=== PATIENT | female | born 1985 | race Caucasian/White ===

== ENCOUNTER 2019-11-13 05:58 | Inpatient (IN) ==
[2019-11-13] MEDS ORDERED: OXYTOCIN 30 UNITS/500 ML BAG IV PRN ×2 (09:13)
--- NOTE | 2019-11-13 09:27 | History & Physical Report ---
Date of Service November 13, 2019 Assessment & Plan (1) Amniotic fluid leaking: Admission and Anticipated Discharge Date Admission Date: IUP at 39 weeks with documented SPROM - not in labor will begin pitocin augmentation of labor as it has been 6 hours since SPROM macrosomic suspected on 34 week ultrasound- last weighed 8 lbs 12 0zs and delivered easily will begin PCN for GBS prophylaxis as well. History of Present Illness Primary Care Provider: Apolinar Burns MD Patient is a 33 yo white female EDC 11/16/19 who presents at 39 2/7 weeks with leaking fluid at 0400. only occasional contractions so far. no obvious gush noted. baby has been active. complicated by S>D with EFW at 98%tile at 34 weeks. GBS(+) Allergies Allergy/AdvReac Type Severity Reaction Status Date / Time No Known Allergies Allergy Verified 11/11/19 13:35 Home Medications Home Medications Medication Instructions Recorded Confirmed Type budesonide 2 inh INHALATION BID 11/13/19 11/13/19 History cetirizine [Zyrtec] 5 mg PO DAILY 11/13/19 11/13/19 History vit no.[id number] 1 tab PO DAILY 11/13/19 11/13/19 History [ Vitamin] Patient History Medical History (Updated 11/13/19 @ 09:24 by Mirta Nance MD, FACOG) Abnormal menstrual cycle Allergic rhinitis Anemia Encounter for anatomic survey Evaluate anatomy not seen on prior sonogram Female pelvic pain Menorrhagia Microscopic hematuria Ovarian cyst Varicella Surgical History S/P tonsillectomy S/P wisdom tooth extraction Family History Father Myocardial infarction Dyslipidemia Grandmother (Maternal) Heart disease Dyslipidemia Grandfather (Paternal) Heart disease Other Colorectal cancer Coronary heart disease Diabetes Hypertension Parkinson's disease Social History Smoking Status: Never smoker Second Hand Exposure: No; Do You Dip or Chew Tobacco: No; Hx Alcohol Use: No Hx Substance Use: No Preferred Language: Haitian Communication Ability: Effective Communication Ability Comment: Patient wears glasses [employer] Marker Required: No Beliefs That Will Affect Care: None marital status: marital status details: Jarret Corbin (33) [phone] work [phone] Current Living Situation: Family Current Living Situation Comment: lives with spouse, 2 sons, dog, cat-spouse changing litter current occupational status: unemployed current occupation: homemaker Other Information That Helps Us Care for You: No Feels Safe at Home: Yes Safety Concerns: Feels Safe At This Time Assistive Devices: Glasses Review of Systems All systems reviewed & are unremarkable except as noted in HPI & below Physical Exam Constitutional: WD/WN, vitals as above Respiratory: normal respiratory effort, lungs clear to auscultation Cardiovascular: RRR, no murmur, no edema Gastrointestinal (Abdomen): normal bowel sounds, soft, nontender, no hepatosplenomegaly Genitourinary: OB Exam Abdomen: + vertex (by ultrasound), + estimated weight (9-10 pounds) and + irregular contractions Manual OB Exam: + cervical dilation 1 cm, + cervical effacement 50%, + station high and + amniotic fluid bloody, nitrazine positive (equivocal- having bloody mucus) and ferning present OB Exam Monitor Tracing: + external FHT monitor used, + external uterine monitor used, + category I and + normal FHT variability Results & Data ([facility]) Vital Signs (Past 12 Hours) Vital Signs Temp Pulse Resp BP 11/13/19 06:59 98.4 F 98 H 20 111/64 11/13/19 06:17 85 112/59 L 11/13/19 06:12 98.2 F 85 18 112/59 L Coding Level of Care Code None Diagnoses Amniotic fluid leaking O42.90
[2019-11-13] MEDS ORDERED: PENICILLIN G POTASSIUM 6 MU in DEXTROSE 5% 250 ML IV ONE (09:30)
[2019-11-13 09:36] LABS: Hematocrit (blood only) 38.2 % (37-47); Hemoglobin 11.7 g/dL (12.0-16.0); Mean Corpuscular Hemoglobin 25.6 pg (25-34); Mean Corpuscular Volume 83.6 fL (80-100); Mean Platelet Volume 10.9 fL (7.4-10.4); Platelet Count 363 K/uL (130-400); RDW Coefficient of Variation 15.8 % (11.5-14.5); RDW Standard Deviation 47.6 fL (36.4-46.3); Red Blood Count 4.57 M/uL (4.2-5.4); White Blood Count 13.73 K/uL (4.8-10.8)
[2019-11-13 09:41] LABS: Mean Corpuscular Hgb Conc 30.6 g/dL (32-36)
[2019-11-13] MEDS: LACTATED RINGER'S 1,000 ML IV PRN (09:57)
[2019-11-13] MEDS ORDERED: CALCIUM CARBONATE 500 MG CHEWABLE TAB PO PRN (11:08)
[2019-11-13] MEDS: PENICILLIN G POTASSIUM 3 MU in DEXTROSE 5% 100 ML IV PRN ×3 (14:03→22:15)
[2019-11-13] MEDS: FAMOTIDINE 20 MG TAB PO SCH (14:55)
[2019-11-13] MEDS ORDERED: BUPIVACAINE 0.25% 30 ML VIAL ONE (20:42)
[2019-11-13] MEDS ORDERED: ePHEDrine sulfate 50 MG/ML AMP ONE (20:42)
[2019-11-13] MEDS ORDERED: fentaNYL citrate 100 MCG/2 ML VIAL ONE (20:42)
[2019-11-13] MEDS ORDERED: fentaNYL 2MCG/ML ROPIV 1.25MG/ML 100 ML BAG EPI ONE (20:43)
--- NOTE | 2019-11-13 21:26 | Anesthesiology Consultation ---
Date of Service November 13, 2019 Assessment & Plan Chart Review Chart Review: Acceptable Risk for Labor Epidural Consults Requested none History Height/Weight Height: 5 ft 6 in Weight: 102.512 kg Allergies Allergy/AdvReac Type Severity Reaction Status Date / Time No Known Allergies Allergy Verified 11/11/19 13:35 Medications Home Medications Medication Instructions Recorded Confirmed Last Taken budesonide 2 inh INHALATION BID 11/13/19 11/13/19 11/12/19 cetirizine [Zyrtec] 5 mg PO DAILY 11/13/19 11/13/19 11/12/19 vit no.[id number] 1 tab PO DAILY 11/13/19 11/13/19 11/12/19 [ Vitamin] Active Medications Generic Name Dose Route Start Last Admin Trade Name Freq PRN Reason Stop Dose Admin Calcium Carbonate 500 mg 11/13/19 11:08 11/13/19 11:15 Calcium Carbonate 500 Mg Chewable Tab PO 12/13/19 11:07 500 mg Q2H PRN Administration Indigestion Famotidine 20 mg 11/13/19 21:00 11/13/19 14:55 Famotidine 20 Mg Tab PO 12/13/19 20:59 20 mg BID JOHANNA Administration Lactated Ringer's 1,000 mls @ 125 mls/hr 11/13/19 09:13 11/13/19 18:58 Lr IV 11/15/19 09:12 125 mls/hr .Q8H PRN Infusion L&D Protocol Protocol Penicillin G Potassium 3 mu/ 106 mls @ 100 mls/hr 11/13/19 09:13 11/13/19 18:58 Dextrose IV 11/23/19 09:12 Infused Q4H PRN Infusion Give until delivery Oxytocin 30 units in 500 mls @ 11 mls/hr 11/13/19 09:13 11/13/19 19:02 Pitocin IV 11/15/19 09:12 0.66 units/hr .Q24H PRN 11 mls/hr Labor Induction/Augmentation Titration Protocol 0.66 UNITS/HR Past Medical History Medical History Abnormal menstrual cycle Allergic rhinitis Anemia Encounter for anatomic survey Evaluate anatomy not seen on prior sonogram Female pelvic pain Menorrhagia Microscopic hematuria Ovarian cyst Varicella Past Family History Family History Father Myocardial infarction Dyslipidemia Grandmother (Maternal) Heart disease Dyslipidemia Grandfather (Paternal) Heart disease Other Colorectal cancer Coronary heart disease Diabetes Hypertension Parkinson's disease Past Surgical History Surgical History S/P tonsillectomy S/P wisdom tooth extraction Social History Smoking Status: Never smoker Do You Dip or Chew Tobacco: No Hx Alcohol Use: No Hx Substance Use: No substance use type: does not use Physical Exam Vital Signs Last Vital Signs Temp 37.1 C 11/13/19 19:05 Pulse 83 11/13/19 21:24 Resp 20 11/13/19 19:05 BP 115/55 L 11/13/19 21:24 Pulse Ox 98 11/13/19 21:21 Testing Laboratory Results 11/13/19 09:24
[2019-11-13] MEDS ORDERED: fentaNYL 2MCG/ML ROPIV 1.25MG/ML 100 ML BAG EPI PRN (21:27)
[2019-11-13] MEDS ORDERED: NALOXONE HCL 1 MG in SODIUM CHLORIDE 0.9% 1000ML 1,000 ML IV PRN (21:27)
[2019-11-13] MEDS ORDERED: NALOXONE HCL 0.4 MG/1 ML VIAL/CARP IV PRN (21:27)
[2019-11-13] MEDS ORDERED: ePHEDrine sulfate 50 MG/ML AMP IV PRN (21:27)
[2019-11-13] MEDS ORDERED: DiphenhydrAMINE HCL 50 MG/ML VIAL IV PRN (21:27)
[2019-11-14] MEDS: LACTATED RINGER'S 1,000 ML IV PRN (00:45)
[2019-11-14] MEDS ORDERED: [UNRECOGNIZED DRUG - REMARK] SCH (01:05)
[2019-11-14] MEDS ORDERED: BENZOCAINE 20% AER SPR 82.5 GM CAN EXT PRN (01:46)
[2019-11-14] MEDS ORDERED: OXYTOCIN 30 UNITS/500 ML BAG IV PRN (01:46)
[2019-11-14] MEDS ORDERED: ACETAMINOPHEN 325 MG TAB PO PRN (01:46)
[2019-11-14] MEDS ORDERED: SUPERCREAM 0.870% 15 GM JAR EXT PRN (01:46)
[2019-11-14] MEDS ORDERED: OXYCODONE/ACETAMINOPHEN 5mg/325mg TAB PO PRN (01:46)
[2019-11-14] MEDS ORDERED: DIPHTHERIA/TETANUS/PERTUSSIS 0.5 ML SYR/VIAL IM ONE (01:46)
[2019-11-14] MEDS ORDERED: HYDROCORTISONE ACETATE 25 MG SUPP PR PRN (01:46)
[2019-11-14] MEDS ORDERED: bisacodyL 10 MG SUPP PR PRN (01:46)
--- NOTE | 2019-11-14 02:19 | Delivery Summary ---
Vaginal Delivery Summary Date of Service Patient is a 33-year-old 3 para 2-0-0-2 white female who presented with spontaneous rupture of membranes at 0400 hrs. on November 12. Regular contractions did not happen spontaneously and Pitocin augmentation of her labor was begun. After she progressed to 3 cm dilated there was noted to be a forewaters which was then ruptured for a copious amount of thin meconium stained fluid. She eventually received epidural analgesia. She progressed to full dilation and pushed effectively to . there was a tight band of tissue at the hymenal ring which was impeding delivery. A small midline episiotomy was done and shortly afterwards the head delivered. The shoulders were delivered easily and the rest of the female followed with ease. The infant was placed on the mother's abdomen for further attention and and drying. The infant was vigorous and moving all 4 limbs. After 1 minute the cord was clamped and cut. The placenta was expressed intact with a three-vessel cord. A second-degree midline episiotomy was repaired with 3-0 chromic in the usual fashion. Estimated blood loss was 300 cc. bleeding was controlled with dilute Pitocin. Mother and infant were doing well after delivery. [facility] [place] Vaginal Delivery Charge Vaginal Delivery Codes: 94260 global code for the antepartum, delivery, and post-
[2019-11-14] MEDS: IBUPROFEN 600 MG TAB PO PRN ×3 (03:31→20:16)
[2019-11-14] MEDS ORDERED: OXYTOCIN 20 UNITS in LACTATED RINGER'S 1,000 ML IV SCH (04:15)
--- NOTE | 2019-11-14 05:08 | Anesthesia Procedure Note ---
Date of Service November 14, 2019 Anesthesia Post Epidural Note Vital Signs Vital Signs: Temp Pulse Resp BP Pulse Ox 36.7 C 96 H 20 115/66 95 11/14/19 03:40 11/14/19 04:46 11/14/19 03:40 11/14/19 04:46 11/14/19 01:37 Pain Intensity Left Hip: Pain Intensity: 0 Notes Mental Status: alert / awake / arousable Nausea / Vomiting: adequately controlled Pain: adequately controlled Airway Patency, RR, SpO2: stable & adequate BP & HR: stable & adequate Hydration State: stable & adequate Neuraxial Anesthesia: was administered and sensory block is resolving Anesthetic Complications: no major complications apparent and Pt Satisfied with anesthetic care Epidural: Removed without complications and With tip intact
--- NOTE | 2019-11-14 08:54 | Obstetrical Progress Note ---
Date of Service November 14, 2019 Assessment & Plan (1) Encounter for care and examination after delivery: voiding issues requiring one straight cath so far monitor urine output may need Phillips Day #:: 1 Subjective Ambulation: limited ambulation Voiding: requires PRN straight cath (has voided but small amounts - cathed once so far since delivery) Passing Gas:: Yes Diet Tolerance:: regular diet Lochia:: Moderate Feeding Type:: breast feeding Physical Exam Constitutional WD/WN, vitals as above Psychiatric A+Ox3, euthymic affect Genitourinary OB Exam Abdomen: + fundal height Fundus: + firm and + relation to umbilicus (1 below U) Results & Data ([facility]) Vital Signs (Past 12 Hours) Vital Signs Temp Pulse Resp BP Pulse Ox 11/14/19 07:15 98.6 F 18 11/14/19 07:07 82 127/60 11/14/19 04:46 96 H 115/66 11/14/19 03:40 98.1 F 105 H 20 129/74 11/14/19 03:38 105 H 129/74 11/14/19 03:26 89 104/52 L 11/14/19 03:11 105 H 117/66 11/14/19 02:56 104 H 117/63 11/14/19 02:41 88 105/56 L 11/14/19 02:40 105 H 18 117/66 11/14/19 02:26 81 103/56 L 11/14/19 02:25 81 18 103/56 L 11/14/19 02:11 96 H 113/62 11/14/19 02:10 96 H 18 113/62 11/14/19 01:58 95 H 109/61 11/14/19 01:55 95 H 18 109/61 11/14/19 01:41 99 H 119/57 L 11/14/19 01:40 99 H 20 119/57 L 11/14/19 01:37 89 95 11/14/19 01:32 87 95 11/14/19 01:31 82 116/58 L 11/14/19 01:27 99 H 96 11/14/19 01:22 103 H 96 11/14/19 01:17 87 98 11/14/19 01:12 97 H 96 11/14/19 01:07 91 H 93 11/14/19 01:02 95 H 124/61 95 11/14/19 01:00 20 11/14/19 00:58 86 93 11/14/19 00:57 90 97 11/14/19 00:52 89 96 11/14/19 00:51 88 94 11/14/19 00:47 98 H 94 11/14/19 00:46 91 H 121/58 L 94 11/14/19 00:42 84 93 11/14/19 00:41 82 94 11/14/19 00:37 89 94 11/14/19 00:35 79 94 11/14/19 00:32 85 95 11/14/19 00:31 91 H 117/56 L 11/14/19 00:30 20 11/14/19 00:29 95 H 93 11/14/19 00:27 102 H 96 11/14/19 00:24 83 94 11/14/19 00:22 87 93 11/14/19 00:17 84 118/55 L 94 11/14/19 00:12 95 H 93 11/14/19 00:11 87 94 11/14/19 00:07 96 H 93 11/14/19 00:05 96 H 94 11/14/19 00:02 91 H 96 11/14/19 00:01 96 H 119/66 11/14/19 00:00 98.8 F 20 11/13/19 23:57 84 96 11/13/19 23:54 87 93 11/13/19 23:52 93 H 96 11/13/19 23:48 99 H 94 11/13/19 23:47 97 H 96 11/13/19 23:46 112 H 133/55 L 11/13/19 23:42 76 94 11/13/19 23:37 89 93 11/13/19 23:33 85 120/64 11/13/19 23:32 88 95 11/13/19 23:30 98.6 F 85 20 94 11/13/19 23:27 93 H 95 11/13/19 23:25 93 H 94 11/13/19 23:22 81 95 11/13/19 23:18 88 121/59 L 11/13/19 23:17 92 H 95 11/13/19 23:12 85 98 11/13/19 23:07 91 H 95 11/13/19 23:04 86 94 09/25/20 23:01 73 96 11/13/19 23:00 20 11/13/19 22:56 81 97 11/13/19 22:54 81 94 11/13/19 22:51 78 95 11/13/19 22:47 78 115/61 11/13/19 22:46 80 96 11/13/19 22:41 80 97 11/13/19 22:36 78 97 11/13/19 22:31 74 122/56 L 95 11/13/19 22:28 20 11/13/19 22:26 73 95 11/13/19 22:21 80 100 11/13/19 22:16 95 H 134/62 97 11/13/19 22:11 86 96 11/13/19 22:08 75 94 11/13/19 22:06 86 98 11/13/19 22:01 82 128/57 L 99 11/13/19 22:00 20 11/13/19 21:57 83 127/63 11/13/19 21:56 73 99 11/13/19 21:51 108 H 133/62 97 11/13/19 21:47 81 129/73 11/13/19 21:46 90 99 11/13/19 21:41 91 H 155/80 H 99 11/13/19 21:37 78 130/60 11/13/19 21:36 82 96 11/13/19 21:31 100 H 97 11/13/19 21:30 99 H 20 123/69 11/13/19 21:28 86 122/58 L 11/13/19 21:26 84 115/55 L 99 11/13/19 21:25 20 11/13/19 21:24 83 115/55 L 11/13/19 21:22 96 H 119/58 L 11/13/19 21:21 89 98 11/13/19 21:20 84 20 121/56 L 11/13/19 21:18 87 118/58 L 11/13/19 21:16 96 H 112/55 L 100 11/13/19 21:15 20 11/13/19 21:14 81 89/51 L 11/13/19 21:12 88 89/51 L 11/13/19 21:11 86 97 11/13/19 21:10 73 20 97/52 L 11/13/19 21:08 71 95/53 L 11/13/19 21:06 77 97 11/13/19 21:01 84 98 11/13/19 21:00 98.4 F 20
[2019-11-14] MEDS: DOCUSATE SODIUM 100 MG CAP PO SCH ×2 (09:37→20:12)
[2019-11-14] MEDS: PRENATAL VITAMIN 1 TAB PO SCH (09:37)
[2019-11-14] MEDS: FAMOTIDINE 20 MG TAB PO SCH ×2 (09:40→21:00)
[2019-11-14] MEDS ORDERED: FLUTICASONE FUROATE 200MCG 14 PUFFS/INHALER INH SCH (21:00)
--- NOTE | 2019-11-14 21:14 | Obstetrical Progress Note ---
Date of Service November 15, 2019 Assessment & Plan (1) : S/p Day 1 - Feels well today. Eating well, voiding well, ambulating well. - Pain well-controlled with ibuprofen 600mg Q4H PRN. - Vital signs reviewed and WNL. - Hemoglobin reviewed. 11.7 --> 8.9 (today). - Blood Type: A+, GBS negative, Rubella Immune, COVID-19 negative - Continue routine post- care: encourage ambulation, monitor and control pain with Motrin PRN, continue regular OB diet, monitor lochia - Encourage breast feeding. - Pt counselled on discharge instructions today - After discharge, will have 6-wk follow-up with Dr. Kolb Admission and Anticipated Discharge Date Admission Date: November 13, 2019 Supervising Physician Co-Signing Physician Notes Resident Physician Supervision Note: I was present with Dr. Barry during the history and exam. I discussed the case with the resident and agree with the findings and plan as documented in the note. Any exceptions or clarifications are listed here: pt doing well and desires d/c home. eating, voiding, ambul without prob, breast feeding, hgb noted, no evid of ongoing issues with bleeding, ff 2 down nt. will d/c home, instructions reviewed. f/u 6wk pp check. Documented By: Ángela Kelly MD, FACOG Subjective HPI Lindsey Corbin is a 33 y/o female who is PPD 1 spontaneous vaginal delivery at 39 3/7 weeks. She reports feeling well overall this morning. No abdominal cramping and 0/10 pain well managed on analgesics. Voiding well. Tolerating meals overnight without difficulty. Patient has been able to ambulate some. passing gas and no bowel movement. Has persistent lochia with some improvement this morning. Currently . Review of Systems Review of Systems: ROS Denies fever or chills. Denies shortness of breath or cough. Denies chest pain. Denies breast pain. Denies dysuria. Denies leg pain or leg swelling. Physical Exam Physical Exam: PE General: Alert, oriented. No acute distress. Cardiac: Regular rate and rhythm. No murmurs. Respiratory: Clear to auscultation bilaterally a/p, no wheezes/rales/rhonchi. No increased work of breathing. Symmetrical chest rise. No respiratory distress. Abdomen: Soft, nontender, nondistended. Bowel sounds present. Uterus: Uterine fundus firm, palpable at umbilicus. Lower Extremities: No lower extremity edema or swelling. No deep calf pain. Desmond's negative bilaterally. Results & Data ([facility]) Vital Signs (Past 12 Hours) Vital Signs Temp Pulse Pulse Resp BP BP Pulse Ox 11/14/19 16:00 36.9 C 87 20 99/66 L 97 11/14/19 11:05 87 101/57 L 11/14/19 11:00 37 C 87 20 101/57 L Resident Activity Tracking Resident Involvement: Resident Care Provided Care Provided: OB Delivery
[2019-11-15] MEDS: IBUPROFEN 600 MG TAB PO PRN (06:53)
[2019-11-15 07:04] LABS: Hematocrit (blood only) 30.1 % (37-47); Hemoglobin 8.9 g/dL (12.0-16.0); Mean Corpuscular Hemoglobin 25.1 pg (25-34); Mean Corpuscular Hgb Conc 29.6 g/dL (32-36); Mean Platelet Volume 10.6 fL (7.4-10.4); Platelet Count 341 K/uL (130-400); RDW Coefficient of Variation 15.9 % (11.5-14.5); RDW Standard Deviation 49.3 fL (36.4-46.3); Red Blood Count 3.54 M/uL (4.2-5.4); White Blood Count 13.35 K/uL (4.8-10.8)
[2019-11-15] MEDS: DOCUSATE SODIUM 100 MG CAP PO SCH (08:45)
[2019-11-15] MEDS: FAMOTIDINE 20 MG TAB PO SCH (08:45)
[2019-11-15] MEDS: PRENATAL VITAMIN 1 TAB PO SCH (08:45)
[2019-11-15] MEDS ORDERED: bisacodyL 5 MG TABEC PO SCH (20:00)
== END 2019-11-15 11:30 | disposition home or self-care (01) | DRG 807 ==
LOC: OPB 05:58 → 4S1 06:05 → 4S2 11-14 14:51